=== PATIENT | male | born 1980 | race Caucasian/White ===

== ENCOUNTER 2019-04-05 21:53 | Emergency (ER) | payer BC ==
[~2019-04-05] VITALS: Ht 175.3 cm; Wt 88.5 kg
--- NOTE | 2019-04-05 22:06 | NUR ---
ED Nurse Note: PT AMBULATED TO ED C/O RIGHT SIDED NUMBNESS SINCE 1999 TODAY. PT DENIES PAIN AT THIS TIME. PT DENIES HX OF HTN.
[2019-04-05 22:07] VITALS: BP 163/90
--- NOTE | 2019-04-05 22:28 | Emergency Room Report ---
History of Present Illness General Chief Complaint: General Complaint Source: Patient Present Illness [facility] Disclaimer: Please note that this report is being documented using [employer] technology. This can lead to erroneous entry secondary to incorrect interpretation by the dictating instrument. HPI: 38-year-old male presents for evaluation of right-sided weakness and numbness beginning approximately 2 hours prior to arrival at 8 PM. The patient was at a show with his girlfriend when he started to notice tingling over the right side of his face as well as upper arm, right leg. He felt weak and fatigued on the right side only but stated that he could walk and had full use of his limbs otherwise. Girlfriend denied any facial droop, slurred speech. The patient denied headache, visual changes, confusion, chest pain, shortness of breath. He noted some nausea and lightheadedness. Denies changes in coordination. No difficulty ambulating. He does feel anxious. Denies drug or alcohol use today. Denies family history of stroke, personal history of arrhythmia, denies coagulopathy. Of note, the patient had a sudden and unexplained hearing loss on the right side several months ago and is been seeing ENT. He finished a steroid regimen 3 days ago, 20 mg daily for 5 days. He also had a reportedly unremarkable MRI performed earlier this year for this hearing loss. PMH: Right-sided hearing loss PSH: Denies Allergies: Penicillin. Social Hx: Social alcohol use. Denies drug or tobacco use Allergies: Coded Allergies: PENICILLINS (Verified Allergy, Unknown, 04/05/19) Nursing Documentation-PMH Past Medical History: No Stated History Review of Systems All Other Systems: negative except mentioned in HPI Physical Exam Vital Signs Date Time Temp Pulse Resp B/P (MAP) Pulse Ox O2 Delivery O2 Flow Rate FiO2 04/05/19 22:03 97.9 96 20 163/90 (114) 100 Room Air General: Awake and alert, no acute distress HEENT: NC/AT. EOMI. PERRLA. Visual cotton are full. No nystagmus. Facial expressions are symmetrical. No facial droop. Uvula is midline, tongue is midline. Tympanic membranes are pearly spaulding, nonbulging, no effusion, no vesicles. Chest Wall: No tenderness, no deformity Cardiovascular: RRR. S1 and S2 normal. No murmur appreciated Resp: Normal work of breathing. No cough, wheezing or crackles appreciated Abdomen: Abdomen is soft, nondistended. Nontender Skin: Intact. No abrasions, laceration or rash over the exposed skin MSK: Normal tone and bulk. Moving all extremities. No obvious deformity. There is no drift in the upper or lower extremities bilaterally. Neuro: Awake and alert. Mentating appropriately. Facial expression symmetrical. No dysarthria, no ataxia on [id number] or [id number] testing. Sensation to light touch is intact over the upper and lower extremities but patient reports subjective dullness on the right side over the face, right upper extremity, right lower extremity. The patient has intact speech with good repetition, comprehension. Fund of knowledge is full. No aphasia, no neglect. NIH: 0 Medical Decision Making ER Course 38-year-old male presents for evaluation of tingling and weakness on the right side beginning approximately 2.5 hours prior to arrival. His NIH score is 0 however the patient notes subjective weakness and subjective dullness on the right side. Will obtain CT scan of the head and MRI with and without. Differential concerning for acute stroke, electrolyte abnormality, anxiety, demyelinating disease. We will start a broad metabolic and infectious work-up otherwise. Patient will be given IV fluids and Ativan for possible anxiety reaction. Lab Results Impression Laboratory Tests Test 04/05/19 22:30 White Blood Count 7.8 K/UL (4.8-10.8) Red Blood Count 4.99 M/UL (4.70-6.10) Hemoglobin 15.6 G/DL (14.2-18.0) Hematocrit 43.0 % (42.0-52.0) Mean Corpuscular Volume 86 FL (80-99) Mean Corpuscular Hemoglobin 31.2 PG (27.0-31.0) H Mean Corpuscular Hemoglobin Concent 36.1 G/DL (32.0-36.0) H Red Cell Distribution Width 10.9 % (11.6-14.8) L Platelet Count 198 K/UL (150-450) Mean Platelet Volume 7.4 FL (6.5-10.1) Neutrophils (%) (Auto) 66.5 % (45.0-75.0) Lymphocytes (%) (Auto) 21.9 % (20.0-45.0) Monocytes (%) (Auto) 9.1 % (1.0-10.0) Eosinophils (%) (Auto) 1.6 % (0.0-3.0) Basophils (%) (Auto) 0.9 % (0.0-2.0) Prothrombin Time 10.5 SEC (9.30-11.50) Prothrombin Time INR 1.0 (0.9-1.1) PTT 27 SEC (23-33) Sodium Level 139 MMOL/L (136-145) Potassium Level 3.3 MMOL/L (3.5-5.1) L Chloride Level 103 MMOL/L (98-107) Carbon Dioxide Level 26 MMOL/L (21-32) Anion Gap 10 mmol/L (5-15) Blood Urea Nitrogen 18 mg/dL (7-18) Creatinine 1.3 MG/DL (0.55-1.30) Estimate Glomerular Filtration Rate > 60 mL/min (>60) Glucose Level 121 MG/DL (74-106) H Calcium Level 8.9 MG/DL (8.5-10.1) Total Bilirubin 0.4 MG/DL (0.2-1.0) Aspartate Amino Transferase (AST) 15 U/L (15-37) Alanine Aminotransferase (ALT) 26 U/L (12-78) Alkaline Phosphatase 64 U/L (46-116) Total Protein 7.7 G/DL (6.4-8.2) Albumin 4.2 G/DL (3.4-5.0) Globulin 3.5 g/dL Albumin/Globulin Ratio 1.2 (1.0-2.7) Triglycerides Level 208 MG/DL (30-150) H Cholesterol Level 192 MG/DL (< 200) LDL Cholesterol 112 mg/dL (<100) H HDL Cholesterol 45 MG/DL (40-60) Cholesterol/HDL Ratio 4.3 (3.3-4.4) EKG Diagnostic Results EKG Time: 22:33 Rate: normal Rhythm: NSR ST Segments: no acute changes Other Impression Sinus rhythm, normal intervals, normal axis. There are inverted T waves in room 3, aVF. No ST segment changes. Rhythm Strip Diag. Results Rhythm Strip Time: 22:33 EP Interpretation: yes Rate: 80s Rhythm: NSR, no PVC's, no ectopy Reevaluation Time: :22 Last Vital Signs Date Time Temp Pulse Resp B/P (MAP) Pulse Ox O2 Delivery O2 Flow Rate FiO2 04/05/19 22:07 97.9 96 20 163/90 100 Room Air Status: improved Reevaluation Impression Patient symptoms were resolved after receiving Ativan. CT scan of the head was unremarkable for bleed or other major abnormality aside from hazy opacity in right sphenoid sinus with the patient states is chronic and is known to his ENT. MR of the head was unremarkable. No evidence of active demyelinating disease or acute stroke. TIA still a possibility though given that the patient' s symptoms were resolved when he received Ativan anxiety reaction and, dehydration, exhaustion are more likely. I offer the patient admission for secondary stroke work-up however he would rather follow-up as an outpatient with his PMD who can arrange neurology follow-up. I believe this is reasonable however the patient will be started on full dose aspirin as a precaution. I did discuss reasons with him to return to the emergency department. He understands and agrees with this treatment plan and will be discharged home to follow-up as an outpatient. Disposition: HOME, SELF-CARE Condition: Improved Scripts Aspirin* (ASPIRIN EC*) 325 Mg Tablet. 325 MG ORAL DAILY for 30 Days, #30 TAB Prov: Mp Dao MD 04/06/19 Mp Dao MD Apr 05, 2019 22:28
[2019-04-05] MEDS ORDERED: Gadavist 7.5mMol/7.5ml vial IV PRN (22:30)
[2019-04-05] MEDS ORDERED: LORazepam Inj 2mg/ml 1ml IV ONE (22:30)
--- NOTE | 2019-04-05 23:01 | NUR ---
ED Nurse Note: CT complete
[2019-04-05 23:04] LABS: BASOPHILS % (AUTO) 0.9 % (0.0-2.0); EOSINOPHILS % (AUTO) 1.6 % (0.0-3.0); HEMOGLOBIN 15.6 G/DL (14.2-18.0); LYMPHOCYTES % (AUTO) 21.9 % (20.0-45.0); MEAN CORPUSCULAR VOLUME 86 FL (80-99); MONOCYTES % (AUTO) 9.1 % (1.0-10.0); NEUTROPHILS % (AUTO) 66.5 % (45.0-75.0); PLATELET COUNT 198 K/UL (150-450); RED BLOOD COUNT 4.99 M/UL (4.70-6.10); RED CELL DISTRIBUTION WIDTH 10.9 % (11.6-14.8); WHITE BLOOD COUNT 7.8 K/UL (4.8-10.8)
--- NOTE | 2019-04-05 23:19 | Diagnostic Imaging Report ---
EXAM: CT Head Without Intravenous Contrast CLINICAL HISTORY: WEAK TECHNIQUE: Axial computed tomography images of the head/brain without intravenous contrast. CTDI is 70.4 mGy and DLP is 1453.3 mGy-cm. One or more of the following dose reduction techniques were used: automated exposure control, adjustment of the mA and/or kV according to patient size, use of iterative reconstruction technique. COMPARISON: No relevant prior studies available. FINDINGS: Brain: No hemorrhage. No mass effect. [place] white junction preserved. Ventricles: Age appropriate Sinuses: Trace sinus opacity with mucosal thickening along with some minimal hazy opacity in the right sphenoid sinus which may represent acute sinusitis. Mastoid air cells: Well aerated as visualized. IMPRESSION: No acute intracranial findings Minimal hazy opacity in the right sphenoid sinus which may represent acute sinusitis.
[2019-04-05 23:23] LABS: ANION GAP 10 mmol/L (5-15); BLOOD UREA NITROGEN 18 mg/dL (7-18); CALCIUM 8.9 MG/DL (8.5-10.1); CARBON DIOXIDE 26 MMOL/L (21-32); CHLORIDE 103 MMOL/L (98-107); CREATININE 1.3 MG/DL (0.55-1.30); POTASSIUM 3.3 MMOL/L (3.5-5.1); SODIUM 139 MMOL/L (136-145)
[2019-04-05 23:30] LABS: ALANINE AMINOTRANSFERASE 26 U/L (12-78); ALBUMIN 4.2 G/DL (3.4-5.0); ALBUMIN/GLOBULIN RATIO 1.2 (1.0-2.7); ALKALINE PHOSPHATASE 64 U/L (46-116); ASPARTATE AMINO TRANSFERASE 15 U/L (15-37); BILIRUBIN,TOTAL 0.4 MG/DL (0.2-1.0); CHOLESTEROL 192 MG/DL (< 200); HDL CHOLESTEROL 45 MG/DL (40-60)
--- NOTE | 2019-04-05 23:36 | NUR ---
ED Nurse Note: pt taken to MRI
--- NOTE | 2019-04-06 00:26 | NUR ---
ED Nurse Note: PT RETURNED FROM MRI
[2019-04-06 00:31] LABS: TRIGLYCERIDES 208 MG/DL (30-150)
--- NOTE | 2019-04-06 00:51 | Diagnostic Imaging Report ---
EXAM: MR Head Without And With Intravenous Contrast CLINICAL HISTORY: WEAK TECHNIQUE: Magnetic resonance images of the head/brain without and with intravenous contrast in multiple planes. COMPARISON: CT Head 04/05/19 FINDINGS: Brain: Unremarkable. No mass. No hemorrhage. No acute infarct. No abnormal intracranial enhancement. Ventricles: Unremarkable. No ventriculomegaly. Bones/joints: Unremarkable. Sinuses: Mucosal thickening of the right maxillary sinus. Left maxillary sinus mucous retention cyst. Secretions seen within the right sphenoid sinus. No acute sinusitis. Mastoid air cells: Unremarkable as visualized. No mastoid effusion. Orbits: Unremarkable as visualized. IMPRESSION: Mucosal thickening of the right maxillary sinus. Left maxillary sinus mucous retention cyst. Secretions seen within the right sphenoid sinus. No acute intracranial abnormality.
[2019-04-06] MEDS ORDERED: ASPIRIN EC325 MG ORAL (01:29)
[2019-04-06 01:32] VITALS: BP 137/71
--- NOTE | 2019-04-06 01:35 | NUR ---
ER DISCHARGE NOTE: Patient is cleared to be discharged per ERMD, pt is aox4, on room air, with stable vital signs. pt was given dc and prescription instructions, pt was able to verbalize understanding, pt id band and iv site removed without complications. pt is able to ambulate with steady gait. pt took all belongings.
--- NOTE | 2019-04-08 11:34 | Cardiology Report ---
APPROVED REPORT EKG Measurement Heart [id number] Normal sinus rhythm T wave abnormality, consider inferior ischemia Abnormal ECG
== END 2019-04-06 01:32 | disposition home or self-care (01) ==
LOC: EMR 22:15
DX: R53.1 Weakness (principal); Z88.0 Allergy status to penicillin; R20.0 Anesthesia of skin
CPT/HCPCS: 36415; 70450; 70553; 80053; 80061; 85025; 85610; 85730; 93005; 96361; 96374; 99284; A9585